=== PATIENT | female | born 1950 | race Hispanic/Latino ===

== ENCOUNTER 2018-05-25 05:27 | Observation (INO) | payer MEDICARE ==
[2018-04-29 13:18] LABS: BASOPHILS # (AUTO) 0.1 (0.0-0.1); BASOPHILS % 0.7 % (0.0-1.0); EOSINOPHILS # (AUTO) 0.2 (0.0-0.4); EOSINOPHILS % 2.9 % (0.0-6.0); HEMATOCRIT 39.5 % (34.2-44.1); LYMPHOCYTES # (AUTO) 2.6 (1.0-3.2); LYMPHOCYTES % 34.6 % (18.0-39.1); MEAN CORPUSCULAR HEMOGLOBIN 27.9 pg (28-32); MEAN CORPUSCULAR HGB CONC 32.9 g/dL (31-35); MEAN CORPUSCULAR VOLUME 84.8 fL (81-99); MONOCYTES # (AUTO) 0.7 (0.2-0.8); MONOCYTES % 8.7 % (4.4-11.3); NEUTROPHILS % 52.8 % (38.7-80.0); PLATELET COUNT 180 x10e3/uL (140-360); RED BLOOD COUNT 4.66 x10e6/uL (3.6-5.1); RED CELL DISTRIBUTION WIDTH 14.1 % (11.7-14.4)
[2018-04-29 13:34] LABS: ANION GAP 13.5 mmol/L (8-16); BLOOD UREA NITROGEN 14 mg/dL (7-26); BUN/CREATININE RATIO 21 (6-25); CARBON DIOXIDE 28 mmol/L (22-29); CHLORIDE 104 mmol/L (98-107); CREATININE, SERUM 0.68 mg/dL (0.57-1.11); EST GLOMERULAR FILTRATION RATE > 60 ML/MIN (60-); GLUCOSE 102 mg/dL (74-118); POTASSIUM 4.5 mmol/L (3.5-5.1); SODIUM 141 mmol/L (136-145)
--- NOTE | 2018-04-29 14:34 | Diagnostic Imaging Report ---
PROCEDURE: X-RAY CHEST, TWO VIEWS COMPARISON: None. INDICATIONS: PRE OPERATIVE CHEST X-RAY FOR SURGERY FINDINGS: LUNGS: No mass or infiltrate. Several subtle bands of atelectasis in the lingula. Pulmonary vasculature is normal PLEURA: No effusions or pneumothorax. There is mild eventration of right diaphragm. HEART \T\ MEDIASTINUM: The heart is within normal size-limits. The aorta is ectatic and diffusely calcified. BONES \T\ SOFT TISSUES: Changes of the spine without compression fracture. Surgical clips in the right upper quadrant are suggestive of cholecystectomy. CONCLUSION: No acute thoracic abnormality. Other findings as described above. Dictated by: Kristie Morgan M.D. on 04/29/2018 at 14:37 Electronically approved by: Kristie Morgan M.D. on 04/29/2018 at 14:37
[~2018-05-25] VITALS: Ht 154.9 cm; Wt 95.8 kg
[~2018-05-25 05:27] MED LIST: ASPIRIN81 MG; ATORVASTATIN CA10 MG PO; BUSPIRONE HCL5 MG PO; DIOVAN HCT 1601 EACH
[2018-05-25] MEDS ORDERED: LIDOCAINE 1% W/EPINEPHRINE 20 ML VIAL ONE ×2 (07:03→08:49)
[2018-05-25] MEDS ORDERED: ESTROGENS CONJUGATED VAGINAL CR 45 GM TUBE PV ONE (07:03)
[2018-05-25] MEDS ORDERED: BUPIVACAINE 0.25% 30ML SDV INJ ONE (07:03)
[2018-05-25] MEDS ORDERED: EPINEPHRINE 2.25% INH NEBU SOL 0.5 ML VIAL ONE (09:19)
[2018-05-25] MEDS ORDERED: ALBUTEROL SULF 0.083% NEB SOLN 3 ML NEB ONE (09:24)
[2018-05-25] MEDS ORDERED: DIPHENHYDRAMINE HCL 25 MG CAP PO PRN (09:30)
[2018-05-25] MEDS ORDERED: BISACODYL 10 MG SUPP PR PRN (09:30)
[2018-05-25] MEDS ORDERED: ACETAMINOPHEN 325 MG TAB PO PRN (09:30)
[2018-05-25] MEDS ORDERED: SIMETHICONE 80 MG CHEW PO PRN (09:30)
[2018-05-25] MEDS ORDERED: MEPERIDINE HCL INJ 25 MG/ML VIAL IV PRN (09:30)
[2018-05-25] MEDS ORDERED: KETOROLAC TROMETHAMINE 30 MG/ML VIAL IM PRN (09:30)
[2018-05-25] MEDS ORDERED: ONDANSETRON HCL INJ 2 MG/ML VIAL IV PRN (09:30)
[2018-05-25] MEDS: LACTATED RINGER'S 1,000 ML IV SCH ×2 (11:00→21:13)
[2018-05-25 11:28] VITALS: BP 108/53
[2018-05-25 11:30] VITALS: BP 108/53
--- NOTE | 2018-05-25 11:49 | Operative Report ---
DATE OF PROCEDURE: May 25, 2018 PREOPERATIVE DIAGNOSIS: Pelvic organ prolapse. POSTOPERATIVE DIAGNOSIS: Pelvic organ prolapse. PROCEDURES 1. Anterior and posterior repair. 2. Sacrospinous colpopexy. COMPLICATIONS: None. ESTIMATED BLOOD LOSS: 50 mL. DESCRIPTION OF PROCEDURE: The patient was taken to the OR. Under general anesthesia, she was prepped and draped in the normal sterile fashion. She was placed in the dorsal lithotomy position, after examination under anesthesia. A weighted speculum was placed inside the vagina. Two Allis clamps were applied at the vaginal vault. Vaginal tissue was injected subcutaneously with Marcaine with epinephrine 0.25%, about 20 mL anteriorly. A transverse skin incision on the vagina was made between the 2 Allis clamps close to the vault using the scalpel. The vagina was dissected off the bladder using Metzenbaum scissors and opened in the midline using the same instrument. Following this, the bladder was dissected off the vagina using both sharp and blunt dissection using Metzenbaum scissors and gentle sweeps of Ray-Nahum wrapped on the index finger. Following this, the pelvic fascia was pierced, and the sacrospinous ligament was palpated using the Capio needle sahu. Vicryl suture was placed on the sacrospinous ligament, and the other end was hitched to the vaginal vault. The same was repeated on the other side of the pelvis. The pubocervical ligament on each side was approximated using Vicryl 2-0 pop-off. Excess vaginal skin was trimmed off using curved Garrett scissors. The vagina was closed with interlocking stitches of Vicryl #0. Following this, the posterior repair was performed using Marcaine with epinephrine. The vagina was opened using Metzenbaum scissors, after dissecting it from the rectum using the same instrument. The 2 flaps of the vagina were opened, and the levator ani was approximated. The excess vaginal skin posteriorly was trimmed off using curved Garrett scissors. The vagina was closed with an interlocking stitch of Vicryl 2-0 posteriorly and the perineum with subcutaneous Vicryl 2-0. The sacrospinous ligament sutures were tied, and the vaginal vault was lifted. The patient tolerated the procedure well. Lap and instrument counts were correct times 2 at the end of the procedure. Job#: [id number]
[2018-05-25 15:26] VITALS: BP 128/76
[2018-05-25] MEDS ORDERED: FENTANYL CITRATE/PF 100MCG/2 ML INJ ONE (16:33)
[2018-05-25] MEDS ORDERED: PROPOFOL IV EMULSION 10 MG/ML 20 ML VIAL ONE (18:21)
[2018-05-25] MEDS ORDERED: LIDOCAINE HCL 2% LOCAL INJ 5 ML SDV VIAL INJ ONE (18:21)
[2018-05-25] MEDS ORDERED: DEXAMETHASONE SOD PHOS INJ 4 MG/ML VIAL ONE (18:21)
[2018-05-25] MEDS ORDERED: SEVOFLURANE INHAL SOLN 250 ML PEN BTL ONE (18:21)
[2018-05-25] MEDS ORDERED: EPHEDRINE SULFATE INJ 50 MG/10 ML SYR ONE (18:21)
[2018-05-25] MEDS ORDERED: ONDANSETRON HCL INJ 2 MG/ML VIAL ONE (18:21)
[2018-05-25] MEDS ORDERED: GLYCOPYRROLATE INJ 1MG/ 5 ML SYR ONE (18:21)
[2018-05-25 19:15] VITALS: BP 120/60
[2018-05-25 19:16] VITALS: BP 128/76
[2018-05-25 21:00] VITALS: BP 128/76
[2018-05-25] MEDS ORDERED: ZOLPIDEM TARTRATE 5 MG TAB PO PRN (21:00)
[2018-05-26 00:10] VITALS: BP 116/56
[2018-05-26] MEDS: LACTATED RINGER'S 1,000 ML IV SCH ×2 (01:20→06:44)
[2018-05-26 05:20] VITALS: BP 105/56
[2018-05-26] MEDS: HYDROCODONE/APAP 5MG-325MG TAB PO PRN ×2 (06:45→13:30)
[2018-05-26 07:24] VITALS: BP 113/58
[2018-05-26 11:15] VITALS: BP 125/61
== END 2018-05-26 14:40 | disposition home or self-care (01) ==
LOC: OR 05:27 → PACU V 09:23 → IMCU 10:50
PROVIDERS: ADMIT Obstetrics & Gynecology; ATTEND Obstetrics & Gynecology
DX: N81.89 Other female genital prolapse (principal); K21.9 Gastro-esophageal reflux disease without esophagitis; I10 Essential (primary) hypertension; F41.9 Anxiety disorder, unspecified; Z86.11 Personal history of tuberculosis
CPT/HCPCS: 36415; 57260; 57282; 71046; 80048; 85025; 93005; G0378 ×2; J1100; J1885; J2001; J2405; J3490; J7120 ×2